=== PATIENT | female | born 1995 | race Caucasian/White ===

== ENCOUNTER 2016-08-16 06:46 | Inpatient (IN) | payer MEDICAID ==
--- NOTE | ~2016-08-16 | HP ---
Unit #: [id number] #: [id number] Patient: CONSTANZA LORA [id number] [place] [address] [id number] MR#: [id number] NAME: CONSTANZA LORA ROOM: [facility] Age: 20 Sex: F Admission Date: 08/16/2016 : 1995 Attending Physician: Terrie Durán M.D. Admitting Physician: Terrie Durán M.D. HISTORY AND PHYSICAL HISTORY OF PRESENT ILLNESS Constanza is a 20 year old admitted to [address] [place] [address] with depression and verbalizing wanting to hurt herself. PAST MEDICAL HISTORY History of migraine headaches. PAST SURGICAL HISTORY Nothing reported. ALLERGIES No known drug allergies. SOCIAL HISTORY She does not smoke. Drinks alcohol rarely. Admits to using marijuana on occasion. FAMILY HISTORY Medically noncontributory. REVIEW OF SYSTEMS CONSTITUTIONAL: No fever or chills. HEENT: Denies any sore throat, ear pain or runny nose. CARDIOVASCULAR: Denies chest pain, irregular heart rhythm or palpitations. CHEST: Denies shortness of breath or cough. No hemoptysis. GASTROINTESTINAL: Denies nausea, vomiting, diarrhea or chronic constipation. ENDOCRINE: Denies history of increased thirst or urination. No recent significant weight loss or gain. GENITOURINARY: Denies dysuria, frequency, or hematuria. SKIN: Denies any rashes. HEMATOLOGIC: Denies history of increased bleeding or bruising. MUSCULOSKELETAL: Denies any hot, swollen joints. No generalized muscle pain. NEUROLOGIC: Denies problems with vision or speech. No frequent, severe headaches. No numbness, tingling or weakness in any extremities. Denies loss of bladder or bowel control. CURRENT MEDICATIONS 1. Risperdal 1 mg b.i.d. 2. Milk of Magnesia p.r.n. 3. Maalox p.r.n. Unit #: [id number] #: [id number] Patient: CONSTANZA LORA 4. Tylenol p.r.n. 5. Imitrex p.r.n. 6. Celexa 20 mg q day PHYSICAL EXAMINATION GENERAL: Alert, well-nourished, in no apparent distress. VITAL SIGNS: Blood pressure 105/68, heart rate 80, respirations 16, temperature 98.6. WEIGHT: 149 pounds. HEIGHT: 5'2". SKIN: Warm and dry without rash or lesion. HEENT: Normocephalic. TMs not viewed. Oral and nasal passages clear. Conjunctivae clear. Pupils equal, round and reactive to light and accommodation. Extraocular movements intact. NECK: Supple without lymphadenopathy or thyromegaly. HEART: Regular rate and rhythm without murmur. LUNGS: Clear. ABDOMEN: Soft, nontender. : Not done. EXTREMITIES: No evidence of cyanosis, clubbing or edema. Moves all extremities without focal deficit. NEUROLOGICAL: Grossly within normal limits. Cranial Nerves: II: Visual holliday are intact. III, IV AND : Extraocular movements are intact. Pupils are equal, round and reactive to light. V: Facial sensation is grossly normal. VII: Facial movements and expression are normal. VIII: Auditory acuity grossly intact. IX, X: Uvula is midline. Phonation is normal. XI: Patient shrugs shoulders and turns head normally. XII: Tongue protrudes in the midline. Sensory and Motor Function: Sensory and motor sensation is grossly normal. Motor: moves all extremities well. Coordination: Gait is normal. Deep Tendon Reflexes: Intact. IMPRESSION Psychiatric admission RECOMMENDATIONS PSYCHIATRIC: Per psychiatrist. MEDICAL: I see no contraindications to participating in facility's activities. MEDICAL PROGNOSIS Good. MEDICAL CONDITION Stable. Dictated by... Ladonna García P.A.-C. for Elliot Harrison/jay Unit #: [id number] #: [id number] Patient: CONSTANZA LORA TD: 08/16/2016 21:45 JOB #: [id number] HISTORY AND PHYSICAL Page 1 of 1 X Ladonna García HISTORY AND PHYSICAL
--- NOTE | ~2016-08-16 | PN ---
Unit #: [id number] #: [id number] Patient: CONSTANZA VIRGEN [id number] [facility] [address] [place] [address] [id number] MR#: [id number] NAME: CONSTANZA VIRGEN ROOM: [facility] Age: 20 Sex: F Admission Date: 08/16/2016 : 1995 Attending Physician: Terrie Durán M.D. Admitting Physician: Elliot Leger PROGRESS NOTES DATE 08/20/2016 DISCUSSION Ms. Constanza Virgen is a 20-year-old female seen on 08/20/2016. The patient dressed casually in hospital attire dietary (1)____. Mood sad, dysphoric, flat affect. The patient reports making progress. No side effects from medication. The patient reports making progress. Denied any suicidal ideation. The patient able to participate in all the programming. Maintain safe behavior. Complete review of systems unremarkable. MENTAL STATUS EXAMINATION General appearance, the patient dressed casually. Attention span and concentration fair. Oriented to place and person. Mood and affect sad, dysphoric. Speech monotone. Thought process concrete. The patient denied any thoughts of harming self or others or any psychotic symptoms. Recent and remote memory poor. Insight and judgement poor. DIAGNOSES Depressive disorder NOS Bipolar mood disorder NOS Cannabis abuse moderate ASSESSMENT/PLAN Advise to continue with current medication and therapeutic protocol. If needed consider further adjustment of medication. Dictated by... Elliot De Santiago/jay TD: 08/23/2016 03:12 JOB #: [id number] Unit #: [id number] #: [id number] Patient: CONSTANZA VIRGEN PROGRESS NOTES Page 1 of 1 X Kenrick Jung MD X PROGRESS NOTE
--- NOTE | ~2016-08-16 | PN ---
Unit #: [id number] #: [id number] Patient: CONSTANZA VIRGEN [id number] [facility] [address] [place] [address] [id number] I MR#: [id number] NAME: CONSTANZA VIRGEN ROOM: [facility] Age: 20 Sex: F Admission Date: 08/16/2016 : 1995 Attending Physician: Terrie Durán M.D. Admitting Physician: Elliot Leger PROGRESS NOTES DATE 08/19/2016 DISCUSSION Constanza Virgen is a 20-year-old white female seen on 2 Ro. The patient continues to report feeling sad depressed but denied any suicidal ideation. The patient's vital signs stable 98.6, 103, 16, 108/71. The patient withdrawn, isolative, flat affect, sad, dysphoric, anxious. The patient reports no side effects from medication. Currently on lithium carbonate, Imitrex p.r.n. and Celexa combination. Complete review of systems unremarkable. MENTAL STATUS EXAMINATION General appearance, the patient dressed casually. Attention span and concentration fair. Oriented to time, place and person. Mood and affect was sad, dysphoric, withdrawn. Speech monotone. Thought process concrete. The patient denied any thoughts of harming self or others but still reporting feeling sad, depressed, anxious, seclusive, isolative. Recent and remote memory poor. Insight and judgement poor. DIAGNOSES Bipolar mood disorder NOS ASSESSMENT/PLAN Advise to continue with current combination of Celexa, lithium. If needed consider further adjustment of medication. Dictated by... Elliot De Santiago/jay TD: 08/22/2016 03:43 JOB #: [id number] Unit #: [id number] #: [id number] Patient: CONSTANZA VIRGEN PROGRESS NOTES Page 1 of 1 X Kenrick Jung MD PROGRESS NOTE
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
--- NOTE | ~2016-08-16 | TN ---
Unit #: [id number] #: [id number] [facility]: [facility] [id number] [facility] [address] [place] [address] [id number] I MR#: [id number] NAME: ALIS VIRGEN ROOM: [facility] Age: 20 Sex: F Admission Date: 08/16/2016 : 1995 Discharge Date: 08/22/2016 Attending Physician: Terrie Durán M.D. LOC TRANSFER NOTE DATE OF SERVICE: 08/23/2016 HISTORY OF PRESENT ILLNESS Ms. Virgen is a 20-year-old single white female, who is a resident of [place], [place] and was stepped down to the outpatient treatment program from the adult inpatient psychiatric unit where she was hospitalized under my care from 08/16/2016 to 08/22/2016 and was brought to the hospital with increasing depression and suicidal ideation, history of bipolar disorder, and was stabilized on a combination of lithium and Celexa and stepped down to the outpatient treatment program. When seen by me, the patient reports that she is doing much better and has been taking medications and tolerating them fairly well and kept on stating that she is feeling good and was seen to have a positive body language and brighter affect and denies any suicidal ideations, intent, or plan. SUBSTANCE ABUSE HISTORY The patient reports history of alcohol, cannabis, cocaine, acid, and benzodiazepine abuse in the past, though she reports that she has not done any drugs in the last few weeks. PAST PSYCHIATRIC HISTORY The patient has a history of inpatient psychiatric hospitalization at [facility] along with outpatient treatment through [facility], and has been diagnosed and treated for bipolar disorder. She is currently on a combination of lithium and Celexa. PAST MEDICAL HISTORY Migraine headaches. ALLERGIES No known medication allergies. PERSONAL AND SOCIAL HISTORY A 20-year-old white female, who reports that she is single, lives with a roommate, and has fairly decent social support system. MENTAL STATUS EXAMINATION Young white female, who was casually dressed with fair personal hygiene, appears to be in no acute distress or discomfort. She was awake and alert on interaction with intact orientation. Her mood was anxious with a congruent affect. Her speech was slow and goal directed. She denies any suicidal or homicidal ideation, and also denies any auditory or visual hallucination. Her insight and judgment remain slightly impaired. Unit #: [id number] #: [id number] Patient: ALIS VIRGEN DIAGNOSTIC IMPRESSION Psychiatric: Bipolar disorder, most recent episode depressed, recurrent, moderate, without psychotic features. Medical: None. Stressors: Moderate psychosocial stressors. TREATMENT PLAN 1. The patient has presented with history of mood disorder. We will recommend enrolling her into the outpatient treatment program and maintaining her on her current medications including lithium and Celexa. We will monitor her response and make further adjustments as needed. 2. Supportive therapy was provided to the patient. 3. Safe, structured, and nourishing environment will be reported. ESTIMATED LENGTH OF STAY 14 to 21 days. ABILITY TO HELP SELF Limited. WILLINGNESS TO HELP SELF The patient appears to be willing to help self. STRENGTHS 1. Communicative. 2. Cooperative. PROBLEMS 1. Chronic dysphoric symptoms. 2. Poor social support system. DISCHARGE CRITERIA This will be contingent upon the patient's ability to show resolution of her depression and anxiety and her ability to stay safe to herself, particularly after discharge from the hospital. Dictated by... Terrie Durán M.D. RASHMI/donna TD: 08/24/2016 01:15 JOB #: [id number] LOC TRANSFER NOTE Page 1 of 1 X Terrie Durán MD X LOC TRANSFER NOTE
--- NOTE | ~2016-08-16 | PN ---
Unit #: [id number] #: [id number] Patient: ALIS VIRGEN [id number] [facility] [address] [place] [address] [id number] I MR#: [id number] NAME: ALIS VIRGEN ROOM: P252 Age: 20 Sex: F Admission Date: 08/16/2016 : 1995 Attending Physician: Terrie Durán M.D. Admitting Physician: Elliot Leger PROGRESS NOTES DATE 08/18/2016 DISCUSSION Ms. Virgen is a 20-year-old white female with bipolar disorder who was seen today and chart was reviewed and case was discussed with the staff. She has been anxious, withdrawn and rather seclusive to herself and reports that she does not like Risperdal and that her father and sister both have been on lithium and they have done good on that and she would like to get on lithium as well. MENTAL STATUS EXAMINATION Young white female who was casually dressed with fair personal hygiene and appears to be in no acute distress or discomfort. She was awake and alert on interaction with intact orientation. Her mood was anxious and depressed with congruent affect. Her speech is slow and goal-directed. She reports having suicidal ideations but denies any homicidal ideations. Her insight and judgement remains slightly impaired. TREATMENT PLAN 1. Will continue on current medications and treatment protocol and will monitor her response to the medications and will switch her Risperdal to lithium. 2. Will continue to follow up. Dictated by... Elliot Leger/marisel TD: 08/21/2016 08:37 JOB #: [id number] Unit #: [id number] #: [id number] Patient: ALIS VIRGEN PROGRESS NOTES Page 1 of 1 X Terrie Durán MD X PROGRESS NOTE
--- NOTE | ~2016-08-16 | PN ---
Unit #: [id number] #: [id number] Patient: ALIS VIRGEN [id number] [facility] [address] [place] [address] [id number] I MR#: [id number] NAME: ALIS VIRGEN ROOM: P252 Age: 20 Sex: F Admission Date: 08/16/2016 : 1995 Attending Physician: Terrie Durán M.D. Admitting Physician: Elliot Leger PROGRESS NOTES DATE OF SERVICE: 08/21/2016 SUBJECTIVE Ms. Virgen is a 20-year-old white female, who was seen today and chart was reviewed, and case was discussed with the staff. She has been anxious and withdrawn, rather seclusive to herself. Meanwhile, she has been cooperative with treatment recommendations and has been taking the medications and tolerating them fairly well with no reported side effects. MENTAL STATUS EXAMINATION Young white female who was casually dressed with fair personal hygiene, appears to be in no acute distress or discomfort. She was awake and alert on interaction with intact orientation. Her mood was anxious with a congruent affect. She denies any suicidal or homicidal ideation. Her insight and judgment remain slightly impaired. TREATMENT PLAN 1. We will continue on her current medications and treatment protocol. We will monitor her response to medications and make further adjustments as needed. 2. We will continue to follow up. Dictated by... Elliot Leger/donna TD: 08/22/2016 05:31 JOB #: [id number] [facility] PROGRESS NOTES Page 1 of 1 X Terrie Durán MD PROGRESS NOTE
--- NOTE | ~2016-08-16 | DS ---
Unit #: [id number] #: [id number] Patient: [facility]IS VIRGEN [id number] [facility] [place] [address] [id number] MR#: [id number] NAME: ALIS VIRGEN ROOM: [facility] Age: 20 Sex: F Admission Date: 08/16/2016 : 1995 Discharge Date: 08/22/2016 Attending Physician: Trerie Durán M.D. DISCHARGE SUMMARY IDENTIFYING DATA Ms. Virgen is a 20-year-old single white female, who is a resident of [place], [place], and is known to us from previous encounter, was self-referred to the hospital on a voluntary basis. DISCHARGE DIAGNOSES Psychiatric: Bipolar disorder, most recent episode depressed, recurrent, moderate, without psychotic features. Medical: Migraine headache. Stressors: Moderate psychosocial stressors. HISTORY OF PRESENT ILLNESS Please see initial psychiatric evaluation for details. PAST PSYCHIATRIC HISTORY Please see initial psychiatric evaluation for details. PAST MEDICAL HISTORY Please see initial psychiatric evaluation for details. HOSPITAL COURSE The patient was admitted to the adult psychiatric unit at [facility] and was oriented to the hospital environment. Routine p.r.n. medications were initiated, and she was initially started on a combination of Celexa and Risperdal to help with the bipolar and depression; however, the patient stated that she does not like Risperdal and that she would like to get off it and that her father and sister both have bipolar disorder and they are on lithium and they are doing fairly well and that she would like to be started on that particular medication and Risperdal was such switched to lithium on her own request at 300 mg b.i.d. and she was closely monitored. She was taking the medications regularly and was tolerating them fairly well and was able to show a decent and therapeutic response with improvement in depression and anxiety and was seen to be though rather seclusive to herself, she was not posing any danger to self or anyone else, and was willing to continue treatment on an outpatient basis and as such, it was decided that she will be discharged home and will continue treatment on outpatient basis. DISCHARGE MEDICATIONS Celexa 20 mg a day for depression and lithium 300 mg b.i.d. for anxiety. DISCHARGE CONDITION Stable. Unit #: [id number] #: [id number] Patient: ALIS VIRGEN Fair. Dictated by... Elliot Leger/donna TD: 08/22/2016 07:24 JOB #: [id number] DISCHARGE SUMMARY Page 1 of 1 X Terrie Durán MD X DISCHARGE SUMMARY
[~2016-08-16 06:46] MED LIST: BIRTH CONTROL PILL PO
[2016-08-17 10:30] LABS: THYROID STIMULATING HORMONE 1.87 uIU/ml (0.34-5.60)
[2016-08-17 10:39] LABS: FREE THYROXIN (T4) 0.83 ng/dL (0.58-1.64)
[2016-08-17 10:41] LABS: ALBUMIN SERUM 3.7 g/dL (3.5-5.0); BILIRUBIN,TOTAL 0.6 mg/dL (0.2-2.0); BUN/CREATININE RATIO 16.66; CALCIUM SERUM 9.1 mg/dL (8.4-10.2); CREATININE SERUM 0.6 mg/dL (0.6-1.4); GLOM FILT RATE Estimated 130.3 mL/min (>60); PROTEIN TOTAL SERUM 6.4 g/dL (6.0-8.3)
[2016-08-17 10:48] LABS: BASOPHIL% 0.5 % (0-2.5); EOSINOPHIL# 0.2 X10e3 (0-0.7); EOSINOPHIL% 2.2 % (0.0-7.0); HEMATOCRIT 37.9 % (35.0-45.0); HEMOGLOBIN 12.5 gm/dL (12.0-16.0); LYMPHOCYTE# 2.5 X10e3 (1.0-3.5); LYMPHOCYTE% 29.1 % (17.0-45.0); MEAN CELL VOLUME 88.3 FL (83-96); MEAN CORPUSCULAR HGB CONC 32.9 g/dL (30-36); MEAN PLATELET VOLUME 8.1 FL (6.5-11.5); MONOCYTE# 0.9 X10e3 (0-1.0); MONOCYTE% 10.9 % (3.0-12.0); NEUTROPHIL# 4.8 X10e3 (1.5-7.1); NEUTROPHIL% 57.3 % (40-75); PLATELET COUNT 282 X10e3 (140-420); RED BLOOD COUNT 4.29 X10e (3.90-5.30); RED CELL DISTRIBUTION WIDTH 14.1 % (11.0-15.5); WHITE BLOOD COUNT 8.5 X10e3 (4.0-10.5)
[2016-08-17 10:50] LABS: DIFF IND YES
[2016-08-17 12:37] LABS: ANISOCYTOSIS SL; PLATELET ESTIMATE NORMAL (NORMAL)
[2016-08-18 13:15] LABS: URINE APPEARANCE CLEAR; URINE BILIRUBIN NEG (NEG); URINE BLOOD NEG (NEG); URINE COLOR YELLOW; URINE GLUCOSE NEG (NEG); URINE KETONE NEG (NEG); URINE LEUKOCYTE ESTERASE NEG (NEG); URINE NITRATE NEG (NEG); URINE PROTEIN NEG (NEG); URINE SPECIFIC GRAVITY 1.009 (1.003-1.035); URINE UROBILINOGEN 0.2 MG/DL (NEG)
[2016-08-18 13:53] LABS: AMPHETAMINE NEG (NEG); BARBITURATES NEG (NEG); BENZODIAZEPINES NEG (NEG); COCAINE NEG (NEG); MARIJUANA POS (NEG); OPIATES NEG (NEG); TRICYCLIC ANTIDEPRESSANTS NEG (NEG); U METHADONE NEG (NEG)
== END 2016-08-22 16:35 | disposition home or self-care (01) | DRG 885 ==
LOC: POF 06:46 → P2L 12:24
PROVIDERS: Psychiatry & Neurology Psychiatry
DX: F31.32 Bipolar disorder, current episode depressed, moderate (principal); G43.909 Migraine, unspecified, not intractable, without status migrainosus
CPT/HCPCS: 80053; 80307; 81003; 84439; 84443; 84703; 85025

== ENCOUNTER 2016-11-09 00:31 | Emergency (ER) | payer MEDICAID ==
[2016-11-09] MEDS ORDERED: CELEXA20 MG (00:50)
[2016-11-09] MEDS ORDERED: LITHIUM (00:50)
[2016-11-09] MEDS ORDERED: TRAZODONE (00:51)
== END 2016-11-09 03:09 | disposition home or self-care (01) ==
LOC: SED 00:31
DX: R07.89 Other chest pain (principal); F41.9 Anxiety disorder, unspecified; F31.9 Bipolar disorder, unspecified
CPT/HCPCS: 99284